=== PATIENT | male | born 1980 | race Caucasian/White ===

== ENCOUNTER → 2017-06-23 | Day surgery (SDC) | payer BC ==
[~2017-06-23] MED LIST: BUPIVACAINE-EPI 0.25%-1:200000 50 ML VIAL.; DEXAMETHASONE SOD PHOS 20 MG/5 ML VIAL.; GLYCOPYRROLATE 1 MG/5 ML VIAL.; KETOROLAC 30 MG/ML INJ FOR OR. INJ; LIDOCAINE 2% PF Vial for OR 5 ML VIAL.; MIDAZOLAM HCL/PF 2 MG/2 ML VIAL.; MORPHINE SULFATE 4 MG/ML DISP.SYRIN. IV; ONDANSETRON PF 4 MG/2 ML VIAL.; ONDANSETRON PF 4 MG/2 ML VIAL. IV; PROCHLORPERAZINE 10 MG/2 ML VIAL. IV; PROPOFOL 20 ML IV; ROPIVacaine 0.5% PF 30 ML VIAL.; SEVOFLURANE 61 TO 120 MINUTES. IH; fentaNYL PF VIAL 100 MCG/2 ML VIAL; fentaNYL PF VIAL 100 MCG/2 ML VIAL IV
[2017-06-23] MEDS: LIDOCAINE 1% PF 2 ML VIAL. ID (09:04)
[2017-06-23] MEDS: IV RINGERS,LACTATED 1000ML 1,000 ML IV (09:04)
[2017-06-23] MEDS: CLINDAMYCIN 900MG PREMIX 50 ML IV (10:10)
[2017-06-23] MEDS: EPINEPHrine VIAL 30 MG/30 ML VIAL (10:23)
[2017-06-23] MEDS: fentaNYL PF VIAL 100 MCG/2 ML VIAL IV ×4 (12:19→12:36)
[2017-06-23] MEDS: oxyCODONE/APAP 7.5/325 1 TAB TABLET PO (12:49)
== END | disposition home or self-care (01) ==
LOC: SURG 07:27
DX: S83.512A Sprain of anterior cruciate ligament of left knee, initial encounter (principal); X50.1XXA Overexertion from prolonged static or awkward postures, initial encounter; Y93.66 Activity, soccer; Y92.89 Other specified places as the place of occurrence of the external cause; Y99.8 Other external cause status; Z88.0 Allergy status to penicillin; Z72.89 Other problems related to lifestyle; Z91.018 Allergy to other foods
CPT/HCPCS: 29888; A7015; C1713; C1762; J0171; J1100; J1885; J2250; J2270; J2405; J2704; J2795; J3010; J3490; J7120